=== PATIENT | male | born 1960 | race Caucasian/White ===

== ENCOUNTER 2016-10-22 07:00 | Inpatient (IN) | payer OTHER ==
[~2016-10-22] VITALS: Ht 180.3 cm; Wt 100.5 kg
--- NOTE | 2016-11-03 20:36 | HP ---
DATE OF ADMISSION: 11/05/2016 This patient is being admitted electively on 11/05/[address] Joo Ureña. REASON FOR ADMISSION: Neck pain. HISTORY OF PRESENT ILLNESS: This 56-year-old man was injured at work in 2012. He suffered an injury to his cervical spine. He has been having pain radiating down his right arm. The patient has failed medical therapy and has decided to undergo surgery. The patient has had an abnormal electrocardiogram. This was first noted on physical examination in October of 2012. The patient did have a cardiology evaluation by [facility] on 10/29/2012. The patient had a nuclear cardiac stress test. The stress test at that time was negative for cardiac ischemia. The patient denies any exertional chest pain or pressure. CURRENT MEDICATIONS: Pantoprazole 20 mg a day and losartan 50 mg a day. PAST MEDICAL HISTORY: Is remarkable for hypertension, gastroesophageal reflux disease, and abnormal electrocardiogram. ALLERGIES: NO KNOWN DRUG ALLERGIES. PAST SURGICAL HISTORY: Right knee arthroscopy, left knee arthroscopy, cholecystectomy, and bilateral inguinal hernia repairs. FAMILY HISTORY: Father is , of colon cancer. Mother is alive, she has mental disease. SOCIAL HISTORY: The patient does not smoke. Drinks alcohol rarely. He is retired. REVIEW OF SYSTEMS: CONSTITUTIONAL: No chills, no weight gain or loss of appetite. No fever. No weakness. No weight loss. No fatigue. OPHTHALMOLOGIC: Ophthalmologic is negative. EARS, NOSE AND THROAT: Negative. CARDIORESPIRATORY: He denies any exertional chest pain or chest pressure. He has no history of heart disease. GASTROINTESTINAL: He does have gastroesophageal reflux disease for which he takes medication. NEUROLOGIC: Neurologic negative. HEME/LYMPH: Negative. DERMATOLOGIC: Negative. UROLOGIC: Negative. PHYSICAL EXAMINATION: GENERAL APPEARANCE: At this time reveals a well-developed man in no apparent distress. VITAL SIGNS: Weight of 222, blood pressure 145/90, and heart rate 69. HEENT: Head normocephalic. Eyes, extraocular muscles intact. Nose and mouth are normal. NECK: Supple. No neck vein distention. LUNGS: Clear to auscultation. HEART: Regular rhythm. No murmurs, gallops, or rubs. ABDOMEN: Soft, nontender. No masses or megaly. EXTREMITIES: No peripheral edema. Pedal pulses are 2 plus bilaterally. IMPRESSION: This patient is cleared for surgery. I will follow the patient along with you postoperatively. Dictated By: Edison Baldwin MD /[email or web address]/justin /Document#: [id number]
[2016-11-04 09:34] VITALS: BMI 30.7
[2016-11-05] VITALS (46 sets, daily range): BP systolic 105–176; BP diastolic 63–91; PULSE 69–102; RESP 7–33; Ht 180.3 cm; Wt 100.5 kg
[2016-11-05] MEDS ORDERED: LACTATED RINGER'S 1,000 ML IV* SCH ×2 (06:00)
[2016-11-05] MEDS ORDERED: CEFAZOLIN 2 GM/50 ML (PMX) 50 ML IVPB ONE (06:00)
--- NOTE | 2016-11-05 06:38 | HPN ---
Date/Time of Note Date/Time of Note DATE: 11/05/16 TIME: 06:37 Interval H&P Admission Note Pt. seen H&P reviewed: No system changes GURU KERN MD Nov 05, 2016 06:37
[2016-11-05] MEDS ORDERED: LOSA50TA6 PO (06:41)
[2016-11-05] MEDS ORDERED: PANT40TA3 PO (06:41)
[2016-11-05] MEDS ORDERED: THROMBIN 5000 UNIT VIAL ONE ×2 (06:42→11:53)
[2016-11-05] MEDS ORDERED: GELATIN SIZE 100 SPONGE ONE ×2 (06:42→11:52)
[2016-11-05] MEDS ORDERED: BUPIVACAINE 0.25% (MPF) 10 ML 10 ML VIAL ONE ×2 (06:42→11:53)
[2016-11-05] MEDS ORDERED: POLYMYXIN/BACITRACIN 1L IRRIG ONE ×3 (06:43→14:39)
[2016-11-05] MEDS ORDERED: PROPOFOL 20 ML ONE ×2 (06:59→10:14)
[2016-11-05] MEDS ORDERED: SUCCINYLCHOLINE CHLORIDE 100 MG/5 ML SYG IV ONE ×2 (06:59→10:14)
[2016-11-05] MEDS ORDERED: MIDAZOLAM 1 MG/ML 2 ML INJ ONE ×2 (06:59→10:14)
[2016-11-05] MEDS ORDERED: FENTAnyl 50 MCG/ML VIAL ONE ×3 (06:59→12:01)
[2016-11-05] MEDS ORDERED: LIDOCAINE 2% (SDV) 5 ML INJ ONE ×2 (06:59→10:14)
[2016-11-05] MEDS ORDERED: ROCURONIUM 50 MG INJ ONE (07:00)
[2016-11-05] MEDS ORDERED: CEFAZOLIN 1 GM INJ ONE ×2 (07:00→11:41)
[2016-11-05] MEDS ORDERED: OCULAR LUBRICANT 3.5 GM OPH OINT ONE ×2 (07:00→11:07)
[2016-11-05] MEDS ORDERED: SEVOFLURANE 15 MIN ONE (07:00)
[2016-11-05] MEDS ORDERED: ONDANSETRON 4 MG INJ ONE ×2 (07:26→11:58)
[2016-11-05] MEDS ORDERED: METOCLOPRAMIDE 10 MG INJ ONE ×2 (07:26→14:09)
[2016-11-05] MEDS ORDERED: DEXAMETHASONE 4 MG/ML 1 ML INJ ONE ×2 (07:29→11:58)
[2016-11-05] MEDS ORDERED: FAMOTIDINE 20 MG INJ ONE (07:29)
--- NOTE | 2016-11-05 08:21 | SIPON ---
Date/Time of Note Date/Time of Note DATE: 11/05/16 TIME: 08:17 Operative Report Preoperative Diagnosis Herniated disc C5-6 Postoperative Diagnosis Same Operation/Procedure Performed Surgery aborted due to abnormal lab study (partial thromboplastin time) Surgeon: GURU KERN MD family medicine physician assistant: RUKHSANA HINTON MD Anesthesia Type: general Estimated Blood Loss: none Transfusion Required: no Specimen: none Grafts/Implants: none Complications: no GURU KERN MD Nov 05, 2016 08:21
[2016-11-05] MEDS ORDERED: PROCHLORPERAZINE 10 MG INJ IV PRN ×2 (08:30→16:00)
[2016-11-05] MEDS ORDERED: DIPHENHYDRAMINE 50 MG INJ IV PRN ×2 (08:30→16:00)
[2016-11-05] MEDS ORDERED: METOCLOPRAMIDE 10 MG INJ IV PRN (08:30)
[2016-11-05] MEDS ORDERED: ONDANSETRON 4 MG INJ IV PRN ×3 (08:30→16:00)
[2016-11-05] MEDS ORDERED: hydrALAzine 20 MG INJ IV PRN (08:30)
[2016-11-05] MEDS ORDERED: LABETALOL HCL 20MG INJ IV PRN (08:30)
[2016-11-05] MEDS ORDERED: MEPERIDINE 25 MG INJ IV PRN ×2 (08:30→16:00)
--- NOTE | 2016-11-05 09:04 | OPR ---
DATE OF OPERATION: 11/05/2016 PREOPERATIVE DIAGNOSIS: Herniated disk, C5-6. POSTOPERATIVE DIAGNOSIS: Herniated disk, C5-6. SURGEON: Joo Ureña MD ASST. SURGEON: Morgan Russell MD ANESTHESIOLOGIST: Anahi Forrest ESTIMATED BLOOD LOSS: 0 cc OPERATION PERFORMED: The surgery was aborted due to abnormal laboratory results (partial thromboplastin time). HISTORY AND PHYSICAL: This is a 56-year-old male with persistent neck and upper extremity complaints, which have been unrelieved by conservative management following an industrial injury of 03/01/2013. He has undergone a number of diagnostic studies including an MRI of the cervical spine, which demonstrated herniation of the C5-6 disk. Treatment options discussed with the patient, he elected to proceed with surgery. OPERATION PERFORMED: With the patient in supine position, after satisfactory induction of general endotracheal anesthesia, the patient was placed in the supine position with a 5-pound sandbag under the left buttock and a 3 L IV bottle under the shoulders. The anterior cervical spine was not prepped or draped because of a repeat partial thromboplastin time, which was phoned into the room, which was 43 (top-normal 35). A preoperative PTT of 37 had been established on October 31, and the study was repeated this morning prior to the proposed surgery. I spoke with the materials technician, Dr. Robby Garcia, who felt that the patient required further workup before proceeding with the surgery and the surgical procedure was then aborted. The patient was extubated by Dr. Forrest and transported to the recovery room in satisfactory condition. Sponge, instrument, needle counts were all correct. As noted previously, the surgery was not initiated once the abnormal blood test was identified. Dictated By: Joo Ureña MD /jorge/don /Document#: [id number] ; Dr. Rooney
[2016-11-05 09:23] LABS: PROTIME 12.3 Sec (12.2-14.2)
[2016-11-05 09:35] LABS: 50/50 PTT IMMED 36.5 Sec
[2016-11-05 09:36] LABS: 50/50 PROTIME CONCLUSION NOT CORRECTED
[2016-11-05] MEDS ORDERED: PROVENTIL HFA 6.7GM INHALER ONE (11:32)
[2016-11-05] MEDS ORDERED: LABETALOL HCL 20MG INJ ONE (11:59)
[2016-11-05] MEDS ORDERED: EPHEDrine SULFATE 50 MG/5 ML SYG ONE (12:11)
[2016-11-05] MEDS ORDERED: HYDROmorphONE 2 MG/ML SYG ONE (12:20)
[2016-11-05] MEDS ORDERED: MINERAL OIL LIGHT 10 ML VIAL ONE (13:32)
[2016-11-05] MEDS ORDERED: NEOSTIGMINE 3 MG/3 ML SYRINGE ONE (15:06)
[2016-11-05] MEDS ORDERED: GLYCOPYRROLATE 0.4 MG INJ ONE (15:06)
--- NOTE | 2016-11-05 15:53 | SIPON ---
Date/Time of Note Date/Time of Note DATE: 11/05/16 TIME: 15:48 Operative Report Preoperative Diagnosis Herniated disc C5-6 Postoperative Diagnosis Same Operation/Procedure Performed Anterior cervical microdiscectomy at C5-6 Anterior interbody arthrodesis at C5-6 Internal fixation at C5-6 with plate and screws Left iliac bone graft Cosmetic wound closures (5 cm left cervical 3 cm left iliac) AP and lateral cervical radiographs (2 sets) Intraoperative nerve monitoring (4-1/2 hours) Surgeon: GURU KERN MD hospital medical assistant: RUKHSANA HINTON MD Anesthesia Type: general Estimated Blood Loss: 50 - 100 ml's Transfusion Required: no Specimens Disc material C5-6 Grafts/Implants Left iliac bone with Cervical plate and screws Complications: no UGRU KERN MD Nov 05, 2016 15:53
[2016-11-05] MEDS ORDERED: ZOLPIDEM 5 MG TAB PO PRN (16:00)
[2016-11-05] MEDS ORDERED: HYDROCODONE/APAP (5/325) TAB PO PRN ×2 (16:00)
[2016-11-05] MEDS ORDERED: NALOXONE (0.4 MG/ML) INJ IV PRN (16:00)
[2016-11-05] MEDS ORDERED: DIAZEPAM 5 MG TAB PO PRN (16:00)
[2016-11-05] MEDS ORDERED: PROCHLORPERAZINE 10 MG TAB PO PRN (16:00)
[2016-11-05] MEDS ORDERED: TRIMETHOBENZAMIDE 100 MG/ML VIAL IM PRN (16:00)
[2016-11-05] MEDS ORDERED: AL HYDROX/MG HYDROX/SIMETH 30 ML CUP PO PRN (16:00)
[2016-11-05] MEDS ORDERED: DIPHENHYDRAMINE 50 MG CAP PO PRN (16:00)
[2016-11-05] MEDS ORDERED: HYDROmorphONE 0.2 MG/ML PCA IV SCH (16:00)
[2016-11-05] MEDS ORDERED: NACL 0.9% 3 ML SYG IV SCH (16:00)
[2016-11-05] MEDS ORDERED: CEPASTAT LOZENGE MT PRN (16:00)
[2016-11-05] MEDS ORDERED: ACETAMINOPHEN 325 MG TAB PO PRN (16:00)
[2016-11-05] MEDS ORDERED: OXYCODONE/ACETAMINOPHEN (5/325) TAB PO PRN ×2 (16:00)
[2016-11-05] MEDS ORDERED: HYDROmorphONE (0.2 MG/ML) 10ML SYG IV PRN ×2 (16:00)
[2016-11-05] MEDS ORDERED: DIAZEPAM 5 MG/ML SYG IM PRN (16:00)
[2016-11-05] MEDS ORDERED: FENTAnyl 50 MCG/ML VIAL IV PRN (16:00)
[2016-11-05] MEDS ORDERED: BETHANECHOL 25 MG TAB PO PRN (16:00)
--- NOTE | 2016-11-05 16:48 | RADRPT ---
PROCEDURE: Intraoperative XR. CLINICAL INDICATION: Intraoperative radiograph during cervical spine surgery. TECHNIQUE: 6 spot intraoperative lateral cervical x-ray image was provided. The images were revie wed on a high-resolution PACS workstation. COMPARISON: None available FINDINGS: Spot intraoperative lateral cervical view were provided during cervical spine surgery. The images d emonstrate initial metallic probe at the level of C6-7. Subsequent images demonstrate anterior cerv ical discectomy and fusion at C5-6 with paired intervertebral body screws and associated anterior sp inal fusion plate. There are postoperative changes in the prevertebral soft tissues. There is an e ndotracheal tube in place. IMPRESSION: 1. Spot intraoperative lateral cervical view during anterior cervical discectomy and fusion at C5-6 were provided. 2. Please see operative report of the same day for further information. RPTAT: HGAS .Grady Hoyos MD, Date Time Electronically viewed and signed by .Grady Hoyos MD, on 11/05/2016 16:47 .S/
[2016-11-05] MEDS ORDERED: ALBUTEROL 0.5% (NEB) 2.5 MG/0.5 ML AMP ONE (17:00)
[2016-11-05] MEDS ORDERED: ALBUTEROL 0.083% (NEB) 2.5 MG/3 ML AMP ONE (17:03)
[2016-11-05] MEDS ORDERED: ALBUTEROL 0.083% (NEB) 2.5 MG/3 ML AMP HHN PRN (17:30)
[2016-11-05] MEDS: DEXTROSE 5%-0.45% NACL 1,000 ML IV SCH (18:51)
[2016-11-05] MEDS: CEFAZOLIN 1 GM/50 ML (PMX) 50 ML IVPB SCH ×2 (18:51→23:44)
[2016-11-05] MEDS ORDERED: RANITIDINE 150 MG TAB PO SCH (21:00)
[2016-11-05] MEDS: LOSARTAN 50 MG TAB PO SCH (21:04)
[2016-11-06 00:03] VITALS: BP 132/64; RESP 18
--- NOTE | 2016-11-06 04:36 | CONS ---
DATE OF ADMISSION: 11/05/2016 DATE OF CONSULTATION: 11/05/2016 Thank you, Dr. Ureña: For asking me to participate in the medical management of this patient. REASON FOR CONSULTATION: To manage the patient's hypertension, gastroesophageal reflux disease. HISTORY OF PRESENT ILLNESS: This 56-year-old man is now postop a cervical spine surgery by Dr. Ureña. The patient was injured at work in 2012. He has been having neck pain with radiation down his right arm since then. The patient failed medical therapy and decided to undergo a surgery to repair his problem. The patient had a cervical spine procedure. He was found to have a herniated disk at the C5 -C6 level and underwent an anterior cervical microdiskectomy at C5-C6 with anterior interbody arthrodesis at C5-C6. The patient is now postop. He is awake and alert. He says that he is having some cervical surgical pain. The patient has a history of hypertension. He also had an abnormal EKG preoperatively. He has had a prior cardiology workup, which was negative for heart disease.the patient had an elevated PTT preoperatively . A PTT 50/50 mix did not correct and patient was felt to have alupus inhibitor and was cleared for surgery . MEDICATION: Include: 1. Pantoprazole 20 mg a day. 2. Losartan 50 mg a day. PAST MEDICAL HISTORY: Remarkable for hypertension, gastroesophageal reflux disease, abnormal electrocardiogram. ALLERGIES: HE HAS NO KNOWN DRUG ALLERGIES. PAST SURGICAL HISTORY: Right knee arthroscopy, left knee arthroscopy, cholecystectomy, bilateral inguinal hernia repairs. FAMILY HISTORY: Father is , of colon cancer. Mother is alive. She has mental illness. SOCIAL HISTORY: The patient does not smoke. Drinks alcohol rarely. He is retired. REVIEW OF SYSTEMS: CONSTITUTIONAL: No chills, no weight can or loss of appetite. No fever. No weakness. No weight loss. No fatigue. OPHTHALMOLOGIC: Negative. EARS, NOSE AND THROAT, LEG: Negative. CARDIORESPIRATORY: He denies exertional chest pain or chest pressure. GASTROINTESTINAL: He does have a gastroesophageal reflux disease, which is controlled with medication. NEUROLOGIC: Negative. HEMATOLOGIC, LYMPHATIC: Negative. DERMATOLOGIC: Negative. UROLOGIC: Negative. PHYSICAL EXAMINATION: GENERAL APPEARANCE: At this time, reveals a well-developed man, in no apparent distress. VITAL SIGNS: Pulse of 84, respirations 11, blood pressure 144/66, O2 sat is 95 percent on nasal cannula. HEENT: Head normocephalic. Eyes: Extraocular muscles intact. Nose and mouth are normal. NECK: He has a rigid cervical collar in place. LUNGS: Clear to auscultation. HEART: Regular rhythm. No murmurs, gallops, or rubs. ABDOMEN: Soft, nontender. No masses or megaly. EXTREMITIES: No peripheral edema. NEUROLOGIC: Grossly intact. IMPRESSION: 1. This patient is now postop a cervical spine surgery. He was found to have a herniated disk at the C5-C6 level causing radiculopathy with pain radiating down his right arm. He says that the pain in his right arm has been relieved. I will manage the patient's hypertension and gastroesophageal reflux disease. PLAN: 1. Resume routine medications. 2. Check labs in the morning. 3. Postop cervical spine surgery protocol. 4. I will follow the patient along with you. Dictated By: Edison Baldwin MD /jorge/don /Document#: [id number] STEPHANIE
[2016-11-06 05:13] VITALS: BP 131/66; PULSE 95; RESP 18
--- NOTE | 2016-11-06 05:24 | OPR ---
DATE OF OPERATION: 11/05/2016 PREOPERATIVE DIAGNOSIS: Herniated disc, C5-C6 with radiculopathy. POSTOPERATIVE DIAGNOSIS: Herniated disc, C5-C6 with radiculopathy. OPERATION AND PROCEDURES.: 1. Anterior cervical microdiscectomy, C5-C6. 2. Anterior cervical interbody arthrodesis, C5-C6. 3. Left iliac bone graft. 4. Internal fixation C5-C6 with plate and screws. 5. Cosmetic wound closures (5 cm left cervical 3 cm left iliac). 6. AP and lateral cervical radiographs (2 sets). 7. Intraoperative nerve monitoring (4 03/17 ). SURGEON: Joo Ureña MD PIECE DYER: Morgan Russell MD ANESTHESIA: General endotracheal. ANESTHESIOLOGIST: Coral Forrest MD ESTIMATED BLOOD LOSS: 50 mL, none replaced. DRAINS: Two medium Hemovac drains employed in the cervical wound. Two medium Hemovac drains in the left iliac wound. COMPLICATIONS: None. PERTINENT HISTORY AND PHYSICAL: This is a 56-year-old male with persistent neck and upper extremity complaints bilaterally, left greater than right which have been unrelieved by conservative management following an industrial injury of 02/08/2013. He has undergone a number of diagnostic studies including an MRI of the cervical spine which demonstrated a disc herniation at C5-C6 with disc space narrowing, as well. Treatment options were discussed with the patient and he elected to proceed with surgery. OPERATIVE FINDINGS AT SURGERY: A degenerated disc at C5-C6 with herniation was confirmed. The baseline intraoperative nerve monitoring revealed a decrease in the C5 potentials bilaterally of 30 percent, the C6 potentials bilaterally of 30 percent and the C7 potentials bilaterally of 10 percent. These all returned to normal at the completion of the surgery. OPERATIVE PROCEDURE: With the patient in supine position, after satisfactory induction of general endotracheal anesthesia by Dr. Forrest the patient was positioned on the operating room table in a supine position with a 5 pounds sandbag under the left buttock and a 3 liter IV bottle under the shoulders. The anterior cervical spine and left iliac crest were prepped and draped in the usual sterile fashion. Athrombic pumps were applied to the legs below the knees for venous stasis during and after procedure. An indwelling Mirza catheter was also placed preoperatively to facilitate bladder drainage during and after the procedure. A 5 cm transverse incision was carried out on the left side of the anterior aspect of the neck approximately 2 fingerbreadths above the left clavicle in line with the clavicle through skin and subcutaneous tissue to the platysma fascia. Superficial retractors were placed and hemostasis secured with electrocautery. Throughout the procedure, copious antibacterial irrigating solution was used to periodically irrigate the wound. The platysma fascia was divided transversely and the interval between the sternocleidomastoid and strap muscles was entered with blunt dissection. The trachea and esophagus were mobilized to the right and protected with a Cloward hand-held retractor. A peanut elevator was then used to clear the soft tissues off of the anterior longitudinal ligament and a spinal needle that was angulated to prevent over penetration was then placed into what was felt to be the C5-C6 disc space. A lateral radiogram was taken and anatomic localization was confirmed. The longissimus colli muscles bilaterally were elevated with a hot knife and a Cloward self-retaining retractor placed into the wound. The operating microscope was moved into place. A 15 blade knife was used to cut a tiny window in the anulus and the anterior longitudinal ligament and multiple degenerative disc fragments were harvested with pituitary rongeurs and sent to the laboratory for pathologic study. Additional fragments were harvested using 0, 2-0, 3-0 and 4-0 straight and angulated Alejandra curettes. The Cloward interbody distractors were employed, however there was some difficulty obtaining sufficient disc space distraction and for that reason, the [place] screws were placed into the bodies of C5 and C6 and the outrigger distractor was used to facilitate disc space distraction. With this having been accomplished, the dissection was carried out to the posterior aspect of the disc space and the posterior longitudinal ligament was then taken down in the midline and over to the foramina bilaterally to decompress the exiting C6 nerve roots on the spinal cord at that level. The high-speed [place] bur was then used to abrade the cartilaginous endplates down to subchondral bleeding bone. While the first x- ray was being developed, attention was turned to the left iliac crest where an incision was made 1 inch proximal 1 inch lateral to the anterior superior iliac spine through skin and subcutaneous tissue in line with the iliac crest to the fascia. The skin was then retracted to the level iliac crest and a fascial incision made directly over the iliac crest and a subperiosteal dissection carried out on the inner and outer table of the left ilium. A tricortical iliac bone graft was then harvested approximately 1 cm in height and 1 cm in depth. The wound was copiously irrigated with antibacterial irrigating solution and bone wax used on the donor bone edges for hemostasis. The wound was closed over 2 medium Hemovac drains using 0 Vicryl sutures on the deep fascia, 2-0 Vicryl sutures on the subcu tissue and a 4-0 Vicryl subcuticular cosmetic closing suture on the skin. Attention was then returned to the cervical wound where the bone plug was trimmed to approximately 8 mm in height and 8 mm in depth and impacted into the C5-C6 disc space. With this having been performed, the [place] screws were removed from C5 and C6, and a cervical plate was selected and placed at the C5-C6 disc space. It was 18 mm in length. Four 14 mm variable screws were then placed into the holes of the plate after the plate was temporarily transfixed to the anterior aspect of the cervical spine with darts and AP and lateral x-rays were taken. The plate and screws were from a company called [employer]. The final screws were then used to replace the darts and final AP and lateral x-rays taken which confirmed satisfactory positioning of the hardware and the iliac bone plug in the C5-C6 disc space. The wound was given a final irrigation with antibacterial irrigating solution and closed over 2 medium Hemovac drains using 0 Vicryl sutures to reapproximate the interval between the sternocleidomastoid and strap muscles, 0 Vicryl sutures in the platysma fascia, 3-0 Vicryl sutures in the subcu tissue and a 4-0 Vicryl subcuticular cosmetic closing suture for the skin. Dermabond was used on both incisions and dry sterile dressings applied, thereafter. The patient's neck was then immobilized in a [place] collar, and he was then extubated by Dr. Forrest He was transported to the recovery room in satisfactory condition. At the conclusion of the procedure, sponge and needle counts were all correct. NEED FOR RAIL OPERATIONS CONTROLLER: During this spinal surgical procedure, my graduate research assistant was used to retract and protect the spinal nerves and dural sac. My graduate research assistant also employed the suction catheters to evacuate blood from the surgical field to improve visualization of the neural structures. The graduate research assistant was medically necessary to facilitate the completion of the surgery in a safe and expeditious manner. State of [place] regulations, as well as hospital bylaws, preclude the use of non- licensed health care personnel such as operating room technicians, to perform these functions. Throughout the procedure, neural monitoring was carried out by [employer] including EMG, SSEP and MEP monitoring of the C4, C5, C6, C7 and C8 nerve roots along with spinal cord potentials. These were interpreted by a neurologist employed by [employer]. Dictated By: Joo Ureña MD /jorge/nathaniel /Document#: [id number] CC: Edison Baldwin MD;*EndCC* MTDD
[2016-11-06 05:29] LABS: HEMATOCRIT 41.7 % (42.0-52.0)
[2016-11-06] MEDS: CEFAZOLIN 1 GM/50 ML (PMX) 50 ML IVPB SCH ×2 (05:49→11:46)
[2016-11-06] MEDS ORDERED: PANTOPRAZOLE (EC) 40 MG TAB PO SCH (06:00)
[2016-11-06 06:03] LABS: CALCIUM 8.4 mg/dl (8.4-10.2); CREATININE 1.16 mg/dl (0.61-1.24); POTASSIUM 4.3 mmol/L (3.5-5.1)
[2016-11-06] MEDS: DEXTROSE 5%-0.45% NACL 1,000 ML IV SCH (06:15)
--- NOTE | 2016-11-06 07:21 | PN ---
Date/Time of Note Date/Time of Note DATE: 11/06/16 TIME: 07:19 Assessment/Plan Lines/Catheters IV Catheter Type (from Nrs): Peripheral IV Mirza in Place (from Nrs): Yes Subjective 24 Hr Interval Summary Patient is postop day #1 following anterior cervical microdiscectomy and interbody arthrodesis at C5-6 using left iliac bone graft and internal fixation.. He is resting comfortably in bed. His a.m. lab work is unremarkable. His Hemovacs had minimal drainage and were both discontinued. Incisions were clean and dry and were redressed. Neurovascular structures are intact distally. He will be mobilized as tolerated by physical therapy, and will be discharged home when cleared by physical therapy. Strict discharge precautions and instructions as well as follow-up arrangements have been given. Exam/Review of Systems Vital Signs Vitals Vital Signs Date Time Temp Pulse Resp B/P Pulse Ox O2 Delivery O2 Flow Rate FiO2 11/06/16 05:19 18 11/06/16 05:13 98.4 95 131/66 96 Nasal Cannula 2.0 Intake and Output 11/05/16 11/05/16 11/06/16 15:00 23:00 07:00 Intake Total 700 ml 2150 ml 1750 ml Output Total 0 ml 380 ml 2510 ml Balance 700 ml 1770 ml -760 ml Results Result Diagram: 11/06/16 0428 11/06/16 0428 GURU KERN MD Nov 06, 2016 07:20
[2016-11-06] MEDS ORDERED: BETHANECHOL 25 MG TAB PO PRN (08:00)
[2016-11-06 08:06] VITALS: BP 123/60; RESP 18
[2016-11-06] MEDS: LOSARTAN 50 MG TAB PO SCH (08:48)
[2016-11-06] MEDS ORDERED: ASCORBIC ACID 500 MG TAB PO SCH (09:00)
[2016-11-06] MEDS ORDERED: FERROUS SULFATE (EC) 325 MG TAB PO SCH (09:00)
[2016-11-06] MEDS ORDERED: DOCUSATE SODIUM 100 MG CAP PO SCH (09:00)
--- NOTE | 2016-11-06 09:11 | CONS ---
Date/Time of Note Date/Time of Note DATE: 11/06/16 TIME: 09:08 Assessment/Plan Assessment/Plan Chief Complaint/Hosp Course 1. He is 1 day post op a Cervical spine surgery . He has no complaints . 2. His VS and labs are OK . Continue current medication and PT Problems: Consultation Date/Type/Reason Admit Date/Time Nov 05, 2016 at 05:12 Initial Consult Date Type of Consultation: medicine 24 HR Interval Summary Free Text/Dictation He is 1 day post op a cervical spine surgery . He feels well . Exam/Review of Systems Vital Signs Vitals Vital Signs Date Time Temp Pulse Resp B/P Pulse Ox O2 Delivery O2 Flow Rate FiO2 11/06/16 08:06 98.1 71 18 123/60 98 11/06/16 05:13 Nasal Cannula 2.0 Intake and Output 11/05/16 11/05/16 11/06/16 15:00 23:00 07:00 Intake Total 700 ml 2150 ml 1750 ml Output Total 0 ml 380 ml 2510 ml Balance 700 ml 1770 ml -760 ml Exam Constitutional: alert, oriented, well developed Neck: non-tender, supple Respiratory: clear to auscultation, normal air movement Cardiovascular: regular rate and rhythm Gastrointestinal: non-tender, soft Musculoskeletal: nl extremities to inspection Results Result Diagram: 11/06/16 0428 11/06/16 0428 Results 24 hrs Laboratory Tests Test 11/06/16 04:28 Hemoglobin 14.0 Hematocrit 41.7 L Sodium Level 137 Potassium Level 4.3 Chloride Level 99 Carbon Dioxide Level 29 Anion Gap 13 Blood Urea Nitrogen 15 Creatinine 1.16 Glucose Level 132 Calcium Level 8.4 Medications Medications Current Medications Lactated Ringer's 1,000 ml @ 20 mls/hr Q24H IV* Last administered on 06:04; Admin Dose 20 MLS/HR; Start 11/05/16 at 06:00; Stop 11/07/16 at 07: 59 Lactated Ringer's 1,000 ml @ 20 mls/hr Q24H IV* Last administered on 06:05; Admin Dose 20 MLS/HR; Start 11/05/16 at 06:00; Stop 11/07/16 at 07: 59 Dextrose/Sodium Chloride (D5-1/2ns) 1,000 ml @ 100 mls/hr Q10H IV Last administered on 11/06/16 06:15; Admin Dose 100 MLS/HR; Start 11/05/16 at 15:40 Acetaminophen/ Hydrocodone Bitart ([place] (5/325)) 1 tab Q4H PRN PO PAIN LEVEL 1 -5; Start 11/05/16 at 16:00 Acetaminophen/ Hydrocodone Bitart 2 tab 2 tab Q4H PRN PO PAIN LEVEL 6-10; Start 11/05/16 at 16:00 Cefazolin Sodium (Ancef 1 Gm/50 ml (Pmx)) 50 ml @ 100 mls/hr Q6 IVPB Last administered on 11/06/16 05:49; Admin Dose 100 MLS/HR; Start 11/05/16 at 18:00 ; Stop 11/06/16 at 12:29 Zolpidem Tartrate (Ambien) 5 mg HS PRN PO INSOMNIA; Start 11/05/16 at 16:00 Prochlorperazine (Compazine) 10 mg Q4H PRN PO NAUSEA AND/OR VOMITING; Start at 16:00 Trimethobenzamide HCl (Tigan) 200 mg Q4H PRN IM NAUSEA AND/OR VOMITING; Start 11/05/16 at 16:00 Ondansetron HCl (Zofran Inj) 4 mg Q6H PRN IV NAUSEA AND/OR VOMITING; Start at 16:00 Al Hydrox/Mg Hydrox/Simethicone (Mag-Al Plus) 15 ml Q4H PRN PO CONSTIPATION; Start 11/05/16 at 16:00 Docusate Sodium (Colace) 100 mg BID PO Last administered on 11/06/16 08:48; Admin Dose 100 MG; Start 11/06/16 at 09:00 Acetaminophen (Tylenol Tab) 650 mg Q4H PRN PO TEMP GREATER THAN 101F OR QUIJANO; Start 11/05/16 at 16:00 Ascorbic Acid (Vitamin C) 1,000 mg BID PO Last administered on 11/06/16 08:48 ; Admin Dose 1,000 MG; Start 11/06/16 at 09:00 Ferrous Sulfate (Ferrous Sulfate (Ec)) 325 mg TID PO Last administered on 08:48; Admin Dose 325 MG; Start 11/06/16 at 09:00 Diazepam (Valium) 5 mg Q4H PRN PO MUSCLE SPASMS; Start 11/05/16 at 16:00 Diazepam (Valium) 5 mg Q4H PRN IM MUSCLE SPASMS; Start 11/05/16 at 16:00 Phenol (Cepastat Lozenge) 1 lozenge PRN PRN MT SORE THROAT Last administered on 11/05/16 18:53; Admin Dose 1 LOZENGE; Start 11/05/16 at 16:00 Diphenhydramine HCl (Benadryl) 50 mg Q6H PRN PO PRURITUS; Start 11/05/16 at 16: 00 Hydromorphone HCl (Dilaudid FOLEY ARTIST) Q4PCA IV Last administered on 11/05/16 16:13 ; Admin Dose 6 MG; Start 11/05/16 at 16:00 Naloxone HCl (Narcan) 0.2 mg Q2M PRN IV RR 8 BREATHS/MIN OR LESS; Start at 16:00 Losartan Potassium (Cozaar) 50 mg DAILY PO Last administered on 11/06/16 08:48 ; Admin Dose 50 MG; Start 11/05/16 at 20:00 Pantoprazole (Protonix Tab) 40 mg DAILY@06 PO Last administered on 11/06/16 05 :49; Admin Dose 40 MG; Start 11/06/16 at 06:00 Bethanechol Chloride (Urecholine) 25 mg PRN PRN PO UNABLE TO VOID; Start at 08:00 YUMIKO CONROY MD Nov 06, 2016 09:11
[2016-11-06 10:36] LABS: ADD UMIC YES; UR ASCORBIC ACID NEGATIVE (NEGATIVE); UR BILIRUBIN (Dip) NEGATIVE (NEGATIVE); UR BLOOD (Dip) 2+ mg/dL (NEGATIVE); UR CLARITY CLEAR (CLEAR); UR COLOR YELLOW (YELLOW); UR GLUCOSE (Dip) NEGATIVE (NEGATIVE); UR KETONES (Dip) NEGATIVE (NEGATIVE); UR LEUKOCYTE ESTERASE (Dip) TRACE Leu/ul (NEGATIVE); UR NITRITE (Dip) NEGATIVE (NEGATIVE); UR RBC 31 /HPF (0-5); UR SPECIFIC GRAVITY (Dip) 1.021 (1.003-1.030); UR TOTAL PROTEIN (Dip) NEGATIVE (NEGATIVE); UR UROBILINOGEN (Dip) NEGATIVE (NEGATIVE)
--- NOTE | 2016-11-24 08:48 | DS ---
Date/Time of Note Date/Time of Note DATE: 11/24/16 TIME: 08:46 Discharge Summary Admission/Discharge Info Admit Date/Time Nov 05, 2016 at 05:12 Discharge Date/Time Nov 06, 2016 at 14:03 Discharge Diagnosis Herniated disc, C5-C6 with radiculopathy. Patient Condition: Good Hospital Course Patient did well postoperatively. His diet and activity were advanced as tolerated. Pain is well controlled. He was discharged home in good condition on postop day #1 Home Meds Reported Medications Pantoprazole* (Protonix*) 40 Mg Tablet., 40 MG PO DAILY, TAB 11/05/16 Losartan Potassium* (Losartan Potassium*) 50 Mg Tablet, 50 MG PO DAILY, TAB 11/05/16 Follow-up Plan Follow-up with Dr. Ureña in 1-2 weeks Primary Care Provider Not On Staff ROLA Hodge Nov 24, 2016 08:48
== END 2016-11-06 14:03 | disposition home or self-care (01) | DRG 472 ==
LOC: REC 11-05 05:12 → MS1 11-05 18:10
PROVIDERS: ADMIT Orthopaedic Surgery; ATTEND Orthopaedic Surgery
PROC: 0RB30ZZ Excision of Cervical Vertebral Disc, Open Approach (ICD-10-PCS; 2016-11-05)
PROC: 0QB30ZZ Excision of Left Pelvic Bone, Open Approach (ICD-10-PCS; 2016-11-05)
PROC: 0RG10A0 Fusion of Cervical Vertebral Joint with Interbody Fusion Device, Anterior Approach, Anterior Column, Open Approach (ICD-10-PCS; principal; 2016-11-05 07:00)
DX: M50.122 Cervical disc disorder at C5-C6 level with radiculopathy (principal); D68.9 Coagulation defect, unspecified; I10 Essential (primary) hypertension; K21.9 Gastro-esophageal reflux disease without esophagitis; Z53.09 Procedure and treatment not carried out because of other contraindication
CPT/HCPCS: 72050; 80048; 81001; 85014; 85018; 85335; 85730; 86850; 86900; 86901; 86920; 87086; 94640; 94664; 97162; C1713; J0690; J1100; J1170; J2250; J2405; J2710; J2765; J3010; J7042; J7120; J7999